=== PATIENT | male | born 1980 | race Caucasian/White ===

== ENCOUNTER → 2020-03-22 | Day surgery (SDC) | payer OTHER ==
[~2020-03-22] MED LIST: AUGMENTIN 875-1 EACH PO; NORCO 5-325 TA1 EACH PO
[2020-03-22 09:52] LABS: HCT 45.5 % (42.0-52.0); HGB 15.4 g/dl (13.2-18.0); MCH 29.8 pg (25.0-31.0); MCHC 33.8 g/dL (32.0-36.0); MPV 9.8 fL (6.0-9.5); RBC 5.17 M/uL (4.70-6.00); RDW 12.5 % (11.5-14.0); WBC 7.1 K/uL (4.0-10.5)
== END | disposition home or self-care (01) ==
LOC: FAS 09:03
PROVIDERS: Legal Medicine
DX: S46.011A Strain of muscle(s) and tendon(s) of the rotator cuff of right shoulder, initial encounter (principal); M19.011 Primary osteoarthritis, right shoulder; M25.811 Other specified joint disorders, right shoulder; K21.9 Gastro-esophageal reflux disease without esophagitis; K44.9 Diaphragmatic hernia without obstruction or gangrene; X50.0XXA Overexertion from strenuous movement or load, initial encounter
CPT/HCPCS: 36415; C1713; J0171; J0690; J1100; J2250; J2405; J2704; J2795; J3010; J7120

== ENCOUNTER 2021-07-29 14:52 | Emergency (ER) | payer OTHER | END 2021-07-29 17:36 | disposition home or self-care (01) | LOC: FER 14:52 | DX: S49.91XA Unspecified injury of right shoulder and upper arm, initial encounter (principal); M77.8 Other enthesopathies, not elsewhere classified; X50.9XXA Other and unspecified overexertion or strenuous movements or postures, initial encounter; Y93.89 Activity, other specified; Y92.818 Other transport vehicle as the place of occurrence of the external cause | CPT/HCPCS: 73030 ==